=== PATIENT | male | born 1975 | race Caucasian/White ===

== ENCOUNTER 2021-01-27 21:31 | Emergency (ER) | payer OTHER, SELFPAY ==
[2021-01-27 21:40] VITALS: BP 133/84; PULSE 84; RESP 16; TEMP 36.9; O2SAT 97; BMI 25.7
[2021-01-27 22:20] LABS: Basophils % 0.5 %; Eosinophils % 0.3 %; Hematocrit 42.5 % (42.0-52.0); Hemoglobin 14.6 g/dL (11.7-16.6); Lymphocytes # 1.5 10^3/uL (0.8-4.8); Lymphocytes % 17.5 %; Mean Corpuscular HGB Conc 34.4 g/dL (30.0-36.0); Mean Corpuscular Hemoglobin 30.5 pg (28.0-34.0); Mean Corpuscular Volume 88.7 fl (80-94); Mean Platelet Volume 9.9 fL (7.4-10.4); Monocytes # 0.7 10^3/uL (0.2-0.9); Monocytes % 7.8 %; Neutrophils # 6.34 10^3/uL (1.8-7.7); Neutrophils % 73.6 %; Nucleated Red Blood Cells % 0 %; Platelet Count 344 10^3/cmm (130-400); Red Blood Count 4.79 10^6/uL (4.1-5.3); White Blood Count 8.6 10^3/uL (4.0-10.0)
--- NOTE | 2021-01-27 22:29 | W.ED.GENADLT ---
HPI - General Adult General: Chief complaint: Abdominal Pain Stated complaint: V Blood Time Seen by Provider: 01/27/21 21:48 History of Present Illness: HPI narrative: Patient is a 45-year-old male with history of to dielufoy lesion who presents the emergency room with concerns for coffee-ground emesis x4 episodes today. Patient tells me that over 5 years ago, he was diagnosed still for a lesion which required therapeutic EGD. Patient also has history of hiatal hernia Charlton's esophagus. Of note, patient denied history of cirrhosis, chronic alcohol use, and NSAIDs use. Patient denies any melena or hematochezia today no complaints abdominal pain at this time. Onset: earlier today Duration:ongoing Location:home Severity:moderate/severe Review of Systems Narrative: Constitutional: No fever, no chills. HEENT: No vision changes CV: No chest pain, no palpitations PULM: no cough, no dyspnea. GI: No abdominal pain, no N/V/D. +hematesis/coffee ground emesis : No dysuria MSKEL: No muscle pain SKIN: No new rashes, no lesions. NEURO: No headache, no focal weakness. HEME: No visible bruises PSYCH: Normal mood Physical Exam Narrative: EXAM NARRATIVE: Head: Atraumatic Eyes: PERRL, conjunctiva without injection ENT: Mucous membrane moist NECK: Supple, ROM intact LUNGS: LCTAB, no crackles/rhonchi CV: RRR ABDOMEN: Soft, no focal TTP. NO guarding rebound, guarding, rigidity. No CVA tenderness to percussion. Neg Chapin/Neg McBurney's point tenderness, no suprabupic tenderness to palpation. EXTREMITY: Normal ROM SKIN: No rash or erythema NEURO: Awake and alert, no focal motor deficits PSYCH: Normal mood and affect Course Vital Signs: Vital signs: Vital Signs Temperature 98.4 F 01/27/21 21:40 Pulse Rate 84 01/27/21 21:40 Respiratory Rate 16 01/27/21 21:40 Blood Pressure 133/84 01/27/21 21:40 Pulse Oximetry 97 01/27/21 21:40 MDM - General Adult MDM Narrative: Medical decision making narrative: Patient is a 45-year-old male with history of hiatal hernia s/p Sharda fundoplication, Charlton's esophagus, Delafoy lesion presenting with concerns for coffee-ground emesis x4 episode. On exam, patient is hemodynamically stable no active vomiting in the emergency room. Abdominal exam is mild unremarkable H&H appears to be stable at 14.6. Given history of delafoy lesion, decision was made to transfer patient for diagnostic and therapeutic EGD. Our institution is ordered [facility] is unable to perform therapeutic EGD. Patient received Protonix in the emergency room. Would not need transfusion currently. Stable for transfer by air rescue. Patient had another episode of coffee ground emesis in the ED. Case was discussed with [facility] provider Dr. Oseguera who agrees with plans for transfer. Disposition: Transfer by air rescue Lab Data: Labs: Lab Results 01/27/21 01/27/21 01/27/21 22:07 22:07 22:07 WBC 8.6 10^3/uL 10^3/ uL (4.0-10.0) RBC 4.79 10^6/uL 10^6 /uL (4.1-5.3) Hgb 14.6 g/dL g/dL (11.7-16.6) Hct 42.5 % % (42.0-52.0) MCV 88.7 fl fl (80-94) MCH 30.5 pg pg (28.0-34.0) MCHC 34.4 g/dL g/dL (30.0-36.0) RDW 13.0 % % (12.1-15.1) Plt Count 344 10^3/cmm 10^3 /cmm (130-400) MPV 9.9 fL fL (7.4-10.4) Neut % (Auto) 73.6 % % Lymph % (Auto) 17.5 % % Coryell % (Auto) 7.8 % % Eos % (Auto) 0.3 % % Baso % (Auto) 0.5 % % Neut # (Auto) 6.34 10^3/uL 10^3 /uL (1.8-7.7) Lymph # (Auto) 1.5 10^3/uL 10^3/ uL (0.8-4.8) Coryell # (Auto) 0.7 10^3/uL 10^3/ uL (0.2-0.9) Eos # (Auto) 0.0 10^3/uL 10^3/ uL (0.0-0.8) Baso # (Auto) 0.0 10^3/uL 10^3/ uL (0.0-0.1) Nucleated RBC % (a uto) 0 % % Nucleated RBCs # 0.0 /100WBC /100W BC PT 13.40 SECONDS SEC ONDS (12.1-14.9) INR 0.99 (0.8-1.2) APTT 27.4 SECONDS SECO NDS (23.9-36.7) Sodium 139 mmol/L mmol/L (136-145) Potassium 4.4 mmol/L mmol/L (3.5-5.1) Chloride 103 mmol/L mmol/L (98-107) Carbon Dioxide 26 mmol/L mmol/L (22-29) Anion Gap 14.4 (5-19) BUN 18 mg/dL mg/dL (6-20) Creatinine 0.7 mg/dL mg/dL (0.7-1.2) GFR Calculation 122.5 mL/min mL/m in (90-130) Calculated Osmolal ity 291 mOsm/kg mOsm/ kg (285-295) Calcium 8.9 mg/dL mg/dL (8.5-10.5) Total Bilirubin 0.8 mg/dL mg/dL (0.15-1.2) AST 14 U/L U/L (0-40) ALT 15 U/L U/L (0-41) Alkaline Phosphata se 57 IU/L IU/L (40-130) Total Protein 6.9 g/dL g/dL (6.6-8.7) Albumin 4.4 g/dL g/dL (3.5-5.2) Globulin 2.5 g/dL g/dL (1.3-4.6) Lipase 22 U/L U/L (13-60) Discharge Plan Discharge Patient Disposition: Transfer to ED Clinical Impression: Hematemesis Condition: Stable Coding Level of Care Code ED Theoretical Physicist for Debra Martinez
[2021-01-27 22:36] LABS: INR 0.99 (0.8-1.2)
[2021-01-27 22:42] LABS: Partial Thromboplastin Time 27.4 SECONDS (23.9-36.7)
[2021-01-27 22:50] LABS: Alanine Aminotransferase 15 U/L (0-41); Albumin Level 4.4 g/dL (3.5-5.2); Alkaline Phosphatase 57 IU/L (40-130); Anion Gap 14.4 (5-19); Aspartate Amino Transferase 14 U/L (0-40); Blood Urea Nitrogen 18 mg/dL (6-20); Calcium 8.9 mg/dL (8.5-10.5); Carbon Dioxide 26 mmol/L (22-29); Chloride 103 mmol/L (98-107); Globulin 2.5 g/dL (1.3-4.6); Glomerular Filtration Rate 122.5 mL/min (90-130); Glucose 119 mg/dL (65-115); Lipase 22 U/L (13-60); Osmolality Calculated 291 mOsm/kg (285-295); Potassium 4.4 mmol/L (3.5-5.1); Sodium 139 mmol/L (136-145); Total Bilirubin 0.8 mg/dL (0.15-1.2); Total Protein 6.9 g/dL (6.6-8.7)
[2021-01-27] MEDS: ondansetron 2 mg/ML SDV 2 mL 4 MG IVP (22:52)
[2021-01-27] MEDS: pantoprazole 40 mg SDV 80 MG IVP (22:52)
[2021-01-28 00:16] LABS: SARS Covid-2 Antigen Negative (Negative)
[2021-01-28 00:44] VITALS: BP 130/71; PULSE 80; RESP 16; TEMP 36.9; O2SAT 97
[2021-01-28 00:48] VITALS: BP 129/98; PULSE 64; RESP 16; O2SAT 97
[2021-01-28] MEDS: ondansetron 2 mg/ML SDV 2 mL 4 MG IVP (01:21)
== END 2021-01-28 01:22 ==
PROVIDERS: Emergency Provider Emergency Medicine
DX: K92.0 Hematemesis (principal); Z20.822 Contact with and (suspected) exposure to COVID-19
CPT/HCPCS: 80053; 83690; 85025; 85610; 85730; 87426; 96374; 96375; 96376; 99285; C9113; J2405